=== PATIENT | male | born 1990 | race Caucasian/White ===

== ENCOUNTER → 2021-08-27 | Day surgery (SDC) | payer OTHER ==
[~2021-08-27] VITALS: Ht 188 cm; Wt 204.1 kg
[~2021-08-27] MED LIST: HYDROCODON-ACE1 EAC6 PO
[2021-08-27 10:02] LABS: RED BLOOD COUNT 4.72 M/UL (4.20-5.50); WHITE BLOOD COUNT 9.7 K/UL (4.5-11.0)
[2021-08-27 10:33] LABS: BUN/CREATININE RATIO 19 (0-10)
== END | disposition home or self-care (01) ==
LOC: OR 08:55
PROVIDERS: Orthopaedic Surgery
DX: S82.402A Unspecified fracture of shaft of left fibula, initial encounter for closed fracture (principal); S82.892A Other fracture of left lower leg, initial encounter for closed fracture; S93.432A Sprain of tibiofibular ligament of left ankle, initial encounter; Z88.1 Allergy status to other antibiotic agents; E66.01 Morbid (severe) obesity due to excess calories; Z88.5 Allergy status to narcotic agent; Z20.822 Contact with and (suspected) exposure to COVID-19; W01.0XXA Fall on same level from slipping, tripping and stumbling without subsequent striking against object, initial encounter; Z68.43 Body mass index [BMI] 50.0-59.9, adult
CPT/HCPCS: 73590; 76000; 80048; 83036; 85027; C1713; J0690; J1100; J1170; J1885; J2001; J2250; J2370; J2405; J2704; J2795; J3010; J7120